=== PATIENT | male | born 1995 | race Caucasian/White ===

== ENCOUNTER 2023-05-03 13:18 | Emergency (ER) | payer OTHER, BC ==
[2023-05-03 13:23] VITALS: BP 127/79; PULSE 73; RESP 18; TEMP 98.2; BMI 27.1
[2023-05-03] MEDS ORDERED: ACETAMINOPHEN 500 MG TABLET (FP) PO ONE (14:13)
[2023-05-03] MEDS ORDERED: KETOROLAC TROMETHAMINE 30 MG/1 ML VIAL IM ONE (14:13)
[2023-05-03] MEDS ORDERED: LIDOCAINE 5% TOPICAL PATCH TP ONE (14:15)
[2023-05-03] MEDS ORDERED: CYCLOBENZAPRINE HCL 5 MG TABLET PO ONE (14:15)
[2023-05-03] MEDS ORDERED: LIDOCAINE 5% TOPICAL PATCH ONE (14:24)
[2023-05-03] MEDS ORDERED: CYCLOBENZAPRINE HCL 10 MG TABLET (FP) ONE (14:24)
[2023-05-03] MEDS ORDERED: KETOROLAC TROMETHAMINE 30 MG/1 ML VIAL ONE (14:24)
[2023-05-03] MEDS ORDERED: ACETAMINOPHEN 500 MG TABLET (FP) ONE (14:25)
[2023-05-03] MEDS ORDERED: LIDOCAINE PATCH REMOVAL MC SCH (22:00)
[2023-05-04] MEDS ORDERED: CYCLOBENZAPRINE HCL 5 MG TABLET PO ONE (14:15)
== END 2023-05-03 14:55 | disposition home or self-care (01) ==
LOC: JERFT 13:18
PROC: 3E023NZ Introduction of Analgesics, Hypnotics, Sedatives into Muscle, Percutaneous Approach (ICD-10-PCS; principal; 2023-05-03)
DX: M54.50 Low back pain, unspecified (principal); V49.50XA Passenger injured in collision with unspecified motor vehicles in traffic accident, initial encounter
CPT/HCPCS: 99284-25